=== PATIENT | male | born 1955 | race Caucasian/White ===

== ENCOUNTER → 2023-07-30 14:01 | Outpatient (REF) | payer MEDICARE, SELFPAY | LOC: HWRAD 14:01 | PROVIDERS: ATTENDING PHYSICIAN Internal Medicine Geriatric Medicine | DX: E78.5 Hyperlipidemia, unspecified (principal) | CPT/HCPCS: 75571 ==

== ENCOUNTER → 2023-10-28 09:30 | Outpatient (REF) | payer MEDICARE, SELFPAY | LOC: HWRAD 09:30 | PROVIDERS: ATTENDING PHYSICIAN Internal Medicine Geriatric Medicine | DX: R93.89 Abnormal findings on diagnostic imaging of other specified body structures (principal) | CPT/HCPCS: 71250 ==

== ENCOUNTER → 2023-11-11 11:50 | Outpatient (REF) | payer MEDICARE, SELFPAY | LOC: RAD 11:50 | PROVIDERS: ATTENDING PHYSICIAN Nurse Practitioner Family; FAMILY PHYSICIAN Internal Medicine Geriatric Medicine | DX: S91.109A Unspecified open wound of unspecified toe(s) without damage to nail, initial encounter (principal) | CPT/HCPCS: 73630 ==

== ENCOUNTER → 2023-11-12 13:01 | Outpatient (REF) | payer MEDICARE, SELFPAY | LOC: PAVMRI 13:01 | PROVIDERS: ATTENDING PHYSICIAN Internal Medicine Geriatric Medicine | DX: K86.89 Other specified diseases of pancreas (principal) | CPT/HCPCS: 74183; A9575 ==

== ENCOUNTER → 2023-11-13 08:00 | Outpatient (REF) | payer MEDICARE, SELFPAY | LOC: HWRAD 08:00 | PROVIDERS: ATTENDING PHYSICIAN Internal Medicine Geriatric Medicine | DX: E04.1 Nontoxic single thyroid nodule (principal) | CPT/HCPCS: 76536 ==

== ENCOUNTER → 2023-12-04 07:22 | Outpatient (REF) | payer MEDICARE, SELFPAY ==
[2023-12-04 08:05] VITALS: BP 148/93; BP_SYST 67
== END ==
LOC: RADI 07:22
PROVIDERS: ATTENDING PHYSICIAN Internal Medicine Geriatric Medicine
DX: E04.2 Nontoxic multinodular goiter (principal)
CPT/HCPCS: 88173; 10005; 10006

== ENCOUNTER → 2023-12-10 08:20 | Outpatient (REF) | payer MEDICARE, SELFPAY | LOC: RCS 08:20 | PROVIDERS: ATTENDING PHYSICIAN Internal Medicine Hematology & Oncology; FAMILY PHYSICIAN Internal Medicine Geriatric Medicine | DX: E83.110 Hereditary hemochromatosis (principal) | CPT/HCPCS: 93306 ==

== ENCOUNTER 2023-12-13 09:10 | Outpatient (RCR) | payer MEDICARE, SELFPAY ==
[2023-12-13 09:40] VITALS: BP 137/80
[2023-12-13 10:04] VITALS: BP 131/79
[2023-12-13 10:09] VITALS: BP 127/78
[2023-12-13 10:11] VITALS: BP 108/58
== END 2023-12-16 09:51 | disposition home or self-care (01) ==
LOC: OID 09:10
PROVIDERS: ATTENDING PHYSICIAN Internal Medicine Hematology & Oncology; FAMILY PHYSICIAN Internal Medicine Geriatric Medicine
DX: E83.110 Hereditary hemochromatosis (principal)
CPT/HCPCS: 99195

== ENCOUNTER 2024-01-15 10:35 | Outpatient (RCR) | payer MEDICARE, SELFPAY ==
[2024-01-15 10:55] VITALS: BP 142/75
[2024-01-15 11:18] LABS: % Basophils 0.5 % (0-2); % Eosinophils 3.2 % (0-6); % Lymphocytes 27.6 % (20.5-51.1); % Neutrophils 61.7 % (42.2-75.2); Absolute Eosinophils 0.1 10^3/uL (0-0.7); Absolute Monocytes 0.3 10^3/uL (0.1-0.6); Absolute Neutrophils 2.3 10^3/uL (1.4-6.5); Mean Corp Hgb Conc. 34.2 g/dL (33.0-37.0); Mean Corpuscular Hgb 34.8 pg (27.0-31.0); Mean Corpuscular Volume 101.6 fL (80.0-94.0); Mean Platelet Volume 9.1 fL (7.4-10.4); Platelet Count 183 10^3/uL (130-400); Red Blood Cell Count 3.74 10^6/uL (4.70-6.10); Red Cell Dist. Width 13.1 % (11.5-14.5); White Blood Cell Count 3.7 10^3/uL (4.8-10.8)
[2024-01-15] MEDS: NSS 500 IV (11:18)
[2024-01-15 12:09] LABS: Iron 181 ug/dl (49-181)
[2024-01-15 12:19] LABS: Percent Saturation 70 % (20-50); Total Iron Binding Capacity 255 ug/dl (261-462)
[2024-01-15 12:20] VITALS: BP 117/70
[2024-01-15 12:25] VITALS: BP 141/82
== END 2024-01-17 09:43 | disposition home or self-care (01) ==
LOC: OID 10:35
PROVIDERS: ATTENDING PHYSICIAN Internal Medicine Hematology & Oncology; FAMILY PHYSICIAN Internal Medicine Geriatric Medicine
DX: E83.110 Hereditary hemochromatosis (principal)
CPT/HCPCS: 36415; 82728; 83540; 83550; 85025; 96360; 99195

== ENCOUNTER 2024-02-10 08:35 | Outpatient (RCR) | payer MEDICARE, SELFPAY ==
[2024-01-27 08:00] VITALS: BP 128/69
[2024-01-27] MEDS: NSS 500 IV (08:15)
[2024-01-27 08:32] LABS: % Basophils 0.6 % (0-2); % Eosinophils 4.6 % (0-6); % Immature Granulocytes 0.3 % (0-0.5); % Lymphocytes 27.6 % (20.5-51.1); % Monocytes 10.7 % (1.7-9.3); % Neutrophils 56.2 % (42.2-75.2); Absolute Eosinophils 0.2 10^3/uL (0-0.7); Absolute Lymphocytes 0.9 10^3/uL (1.2-3.4); Absolute Monocytes 0.4 10^3/uL (0.1-0.6); Absolute Neutrophils 1.8 10^3/uL (1.4-6.5); Hematocrit 40.8 % (39.0-52.0); Hemoglobin 13.7 g/dL (13.0-18.0); Mean Corp Hgb Conc. 33.6 g/dL (33.0-37.0); Mean Corpuscular Hgb 34.5 pg (27.0-31.0); Mean Corpuscular Volume 102.8 fL (80.0-94.0); Mean Platelet Volume 9.5 fL (7.4-10.4); Nucleated Red Blood Cells % 0 % (-); Platelet Count 184 10^3/uL (130-400); Red Blood Cell Count 3.97 10^6/uL (4.70-6.10); Red Cell Dist. Width 14.2 % (11.5-14.5); White Blood Cell Count 3.3 10^3/uL (4.8-10.8)
[2024-01-27 08:48] LABS: Iron 254 ug/dl (49-181)
[2024-01-27 09:00] LABS: Percent Saturation 98 % (20-50); Total Iron Binding Capacity 259 ug/dl (261-462)
[2024-01-27 09:10] VITALS: BP 120/72
[2024-01-27 09:15] VITALS: BP 122/76
[2024-01-27 09:20] VITALS: BP 123/83
[2024-02-04 08:54] VITALS: BP 132/82
[2024-02-04] MEDS: NSS 500 IV (09:10)
[2024-02-04 09:16] LABS: % Basophils 0.2 % (0-2); % Eosinophils 2.5 % (0-6); % Lymphocytes 26.8 % (20.5-51.1); % Monocytes 11.5 % (1.7-9.3); Absolute Eosinophils 0.1 10^3/uL (0-0.7); Absolute Lymphocytes 1.1 10^3/uL (1.2-3.4); Absolute Monocytes 0.5 10^3/uL (0.1-0.6); Absolute Neutrophils 2.4 10^3/uL (1.4-6.5); Hematocrit 40.3 % (39.0-52.0); Hemoglobin 13.8 g/dL (13.0-18.0); Mean Corp Hgb Conc. 34.2 g/dL (33.0-37.0); Mean Corpuscular Hgb 35.5 pg (27.0-31.0); Mean Corpuscular Volume 103.6 fL (80.0-94.0); Mean Platelet Volume 9.3 fL (7.4-10.4); Platelet Count 188 10^3/uL (130-400); Red Blood Cell Count 3.89 10^6/uL (4.70-6.10); Red Cell Dist. Width 13.6 % (11.5-14.5); White Blood Cell Count 4.1 10^3/uL (4.8-10.8)
[2024-02-04 10:11] VITALS: BP 116/74
[2024-02-10] MEDS: NSS 500 IV (09:05)
[2024-02-10 09:07] VITALS: BP 129/75
[2024-02-10 09:10] LABS: % Basophils 0.4 % (0-2); % Eosinophils 3.2 % (0-6); % Immature Granulocytes 0.2 % (0-0.5); % Lymphocytes 19.8 % (20.5-51.1); % Monocytes 7.5 % (1.7-9.3); % Neutrophils 68.9 % (42.2-75.2); Absolute Eosinophils 0.2 10^3/uL (0-0.7); Absolute Monocytes 0.4 10^3/uL (0.1-0.6); Absolute Neutrophils 3.5 10^3/uL (1.4-6.5); Hematocrit 39.4 % (39.0-52.0); Hemoglobin 13.7 g/dL (13.0-18.0); Mean Corp Hgb Conc. 34.8 g/dL (33.0-37.0); Mean Corpuscular Hgb 36.2 pg (27.0-31.0); Mean Corpuscular Volume 104.2 fL (80.0-94.0); Platelet Count 181 10^3/uL (130-400); Red Blood Cell Count 3.78 10^6/uL (4.70-6.10); Red Cell Dist. Width 13.3 % (11.5-14.5)
[2024-02-10 09:40] VITALS: BP 128/68
[2024-02-10 09:45] VITALS: BP 129/76
== END 2024-02-18 23:59 | disposition home or self-care (01) ==
LOC: OID 08:35
PROVIDERS: ATTENDING PHYSICIAN Internal Medicine Hematology & Oncology; FAMILY PHYSICIAN Internal Medicine Geriatric Medicine
DX: E83.110 Hereditary hemochromatosis (principal)
CPT/HCPCS: 36415; 82728; 83540; 83550; 85025; 96360; 99195

== ENCOUNTER 2024-02-11 06:00 | Day surgery (SDC) | payer MEDICARE, SELFPAY ==
[2024-02-11 08:02] VITALS: BMI 25.4
[2024-02-11 08:07] VITALS: BP 140/82
[2024-02-11 08:13] VITALS: BMI 25.4
[2024-02-11 11:48] VITALS: BP 107/71
[2024-02-11 12:00] VITALS: BP 112/81
[2024-02-11 12:15] VITALS: BP 120/81
== END 2024-02-11 12:25 | disposition home or self-care (01) ==
LOC: SDS 06:00
PROVIDERS: ATTENDING PHYSICIAN Internal Medicine Gastroenterology
DX: K86.2 Cyst of pancreas (principal); D13.6 Benign neoplasm of pancreas
CPT/HCPCS: 43238; 88173; 88305

== ENCOUNTER 2024-08-31 09:27 | Outpatient (RCR) | payer MEDICARE, SELFPAY ==
[2024-08-24 09:40] VITALS: BP 116/73
[2024-08-24 09:50] LABS: Hematocrit 46.2 % (39.0-52.0); Hemoglobin 16.3 g/dL (13.0-18.0); Mean Corp Hgb Conc. 35.3 g/dL (33.0-37.0); Mean Corpuscular Volume 97.5 fL (80.0-94.0); Platelet Count 172 10^3/uL (130-400); Red Cell Dist. Width 12.4 % (11.5-14.5)
[2024-08-24] MEDS: NSS 500 IV (10:01)
[2024-08-24 10:50] VITALS: BP 116/70
[2024-08-24 10:55] VITALS: BP 124/77
[2024-08-31] MEDS: NSS 1000 IV (09:50)
[2024-08-31 09:53] VITALS: BP 108/68
[2024-08-31 09:53] LABS: Hematocrit 43.5 % (39.0-52.0); Hemoglobin 14.9 g/dL (13.0-18.0); Mean Corp Hgb Conc. 34.3 g/dL (33.0-37.0); Mean Corpuscular Volume 98.0 fL (80.0-94.0); Platelet Count 176 10^3/uL (130-400); Red Cell Dist. Width 12.6 % (11.5-14.5)
[2024-08-31 10:20] VITALS: BP 124/73
[2024-08-31] MEDS: CYANOCOBALAMIN 1000 MCG IM (10:33)
[2024-08-31 10:40] VITALS: BP 117/71
[2024-08-31 10:41] LABS: Iron 179 ug/dl (49-181)
[2024-08-31 10:42] VITALS: BP 133/82
[2024-08-31 10:50] LABS: Total Iron Binding Capacity 278 ug/dl (261-462)
[2024-08-31 11:57] LABS: Ferritin 43.9 ng/ml (17.9-464.0)
[2024-08-31 12:11] LABS: Vitamin B12 988 pg/ml (239-931)
[2024-09-14 09:45] LABS: Hematocrit 44.0 % (39.0-52.0); Hemoglobin 15.1 g/dL (13.0-18.0); Mean Corp Hgb Conc. 34.3 g/dL (33.0-37.0); Mean Corpuscular Volume 100.2 fL (80.0-94.0); Platelet Count 191 10^3/uL (130-400); Red Cell Dist. Width 13.2 % (11.5-14.5)
[2024-09-14 10:49] LABS: Iron 150 ug/dl (49-181)
[2024-09-14 10:58] LABS: Total Iron Binding Capacity 302 ug/dl (261-462)
[2024-09-14 11:24] LABS: Ferritin 30.5 ng/ml (17.9-464.0)
== END 2024-09-17 23:59 | disposition home or self-care (01) ==
LOC: OID 09:27
PROVIDERS: ATTENDING PHYSICIAN Internal Medicine Hematology & Oncology; FAMILY PHYSICIAN Internal Medicine Geriatric Medicine
DX: E83.110 Hereditary hemochromatosis (principal)
CPT/HCPCS: 36415; 82607; 82728; 83540; 83550; 85025; 96360; 96372; 99195

== ENCOUNTER → 2024-10-01 13:02 | Outpatient (REF) | payer MEDICARE, SELFPAY | LOC: HWRAD 13:02 | PROVIDERS: ATTENDING PHYSICIAN Internal Medicine Geriatric Medicine | DX: R93.89 Abnormal findings on diagnostic imaging of other specified body structures (principal); E04.1 Nontoxic single thyroid nodule | CPT/HCPCS: 71250; 76536 ==

== ENCOUNTER → 2024-11-02 10:37 | Outpatient (REF) | payer MEDICARE, SELFPAY ==
[2024-11-02 10:48] LABS: Hematocrit 49.0 % (39.0-52.0); Hemoglobin 16.8 g/dL (13.0-18.0); Mean Corp Hgb Conc. 34.3 g/dL (33.0-37.0); Mean Corpuscular Volume 98.8 fL (80.0-94.0); Platelet Count 151 10^3/uL (130-400); Red Cell Dist. Width 12.4 % (11.5-14.5)
[2024-11-02 12:29] LABS: ALT (SGPT) 20 U/L (0-50); AST (SGOT) 21 U/L (17-59); Albumin 4.4 g/dl (3.5-5.0); Alkaline Phosphatase 67 U/L (38-126); Blood Urea Nitrogen 18 mg/dl (9-20); Calcium 9.2 mg/dl (8.4-10.2); Carbon Dioxide 27 mmol/L (22-30); Chloride 106 mmol/L (98-107); Glucose 73 mg/dl (70-99); Iron 255 ug/dl (49-181); Potassium 4.7 mmol/L (3.5-5.1); Sodium 138 mmol/L (135-145); Total Protein 7.2 g/dl (6.3-8.2)
[2024-11-02 12:38] LABS: Total Iron Binding Capacity 286 ug/dl (261-462)
[2024-11-02 12:46] LABS: eGFR 49.77
[2024-11-02 13:04] LABS: Ferritin 34.6 ng/ml (17.9-464.0)
== END ==
LOC: OIDL 10:37
PROVIDERS: ATTENDING PHYSICIAN Internal Medicine Hematology & Oncology; FAMILY PHYSICIAN Internal Medicine Geriatric Medicine
DX: E83.110 Hereditary hemochromatosis (principal)
CPT/HCPCS: 36415; 80053; 82728; 83540; 83550; 85025

== ENCOUNTER → 2024-12-08 15:09 | Outpatient (REF) | payer MEDICARE, SELFPAY | LOC: MRI 3T 15:09 | PROVIDERS: ATTENDING PHYSICIAN Internal Medicine Geriatric Medicine | DX: K86.89 Other specified diseases of pancreas (principal) | CPT/HCPCS: 74183; A9575 ==